=== PATIENT | male | born 1970 | race Caucasian/White ===

== ENCOUNTER 2018-01-28 18:38 | Emergency (ER) | payer OTHER ==
[~2018-01-28] VITALS: Ht 180.3 cm; Wt 106.6 kg
[~2018-01-28 18:38] MED LIST: ALPRAZOLAM
[2018-01-28] MEDS ORDERED: LEVOTHYROXINE100 MC1 IV (18:52)
[2018-01-28] MEDS ORDERED: ADDERALL 20 MG20 M1 PO (18:53)
[2018-01-28] MEDS ORDERED: NORCO 5-325 TA1 EAC1 PO (19:31)
[2018-01-28] MEDS ORDERED: ERYTHROMYCIN E3.5 G2 OPHTHALMIC (19:31)
[2018-01-28 19:39] VITALS: BP 138/87
== END 2018-01-28 19:40 | disposition home or self-care (01) ==
LOC: M.ERS 18:38
DX: S05.02XA Injury of conjunctiva and corneal abrasion without foreign body, left eye, initial encounter (principal); E03.9 Hypothyroidism, unspecified; Z91.041 Radiographic dye allergy status; X58.XXXA Exposure to other specified factors, initial encounter; Y93.89 Activity, other specified; Y92.89 Other specified places as the place of occurrence of the external cause; Y99.8 Other external cause status